=== PATIENT | male | born 1970 | race Caucasian/White ===

== ENCOUNTER 2018-11-06 17:53 | Emergency (ER) | payer OTHER ==
[~2018-11-06] VITALS: Ht 175.3 cm; Wt 72.6 kg
[2018-11-06 18:07] VITALS: BP 135/79
--- NOTE | 2018-11-06 18:13 | PHYS DOC ---
Adult General Chief Complaint Chief Complaint: [facility] HPI Patient is a 48 year old male who presents with right rotator cuff surgery on Thursday by . 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 Patient states today he began having muscle cramps that goes from his right neck going down his right arm. Patient rates pain a 10 out of 10. Patient is in a shoulder immobilizer. Review of Systems Review of Systems Constitutional: Denies fever or chills [] Eyes: Denies change in visual acuity, redness, or eye pain [] HENT: Denies nasal congestion or sore throat [] Respiratory: Denies cough or shortness of breath [] Cardiovascular: No additional information not addressed in HPI [] GI: Denies abdominal pain, nausea, vomiting, bloody stools or diarrhea [] : Denies dysuria or hematuria [] Musculoskeletal: Right shoulder and arm cramping. Denies back pain or joint pain [] Integument: Denies rash or skin lesions [] Neurologic: Denies headache, focal weakness or sensory changes [] Endocrine: Denies polyuria or polydipsia [] All other systems were reviewed and found to be within normal limits, except as documented in this note. Current Medications Current Medications Current Medications Medications (Trade) Dose Ordered Sig/Melinda Start Time Stop Time Status Last Admin Dose Admin Ketorolac Tromethamine (Toradol Im) 60 mg 1X ONCE 11/06/18 18:15 11/06/18 18:16 DC 11/06/18 18:17 60 MG Orphenadrine Citrate (Norflex) 60 mg 1X ONCE 11/06/18 18:15 11/06/18 18:16 DC 11/06/18 18:16 60 MG Allergies Allergies Allergies Coded Allergies Type Severity Reaction Last Updated Verified No Known Drug Allergies 11/06/18 No Physical Exam Physical Exam Constitutional: Well developed, well nourished, no acute distress, non-toxic appearance. [] HENT: Normocephalic, atraumatic, bilateral external ears normal, oropharynx moist, no oral exudates, nose normal. [] Eyes: PERRLA, EOMI, conjunctiva normal, no discharge. [] Neck: Normal range of motion, no tenderness, supple, no stridor. [] Cardiovascular:Heart rate regular rhythm, no murmur [] Lungs & Thorax: Bilateral breath sounds clear to auscultation [] Abdomen: Bowel sounds normal, soft, no tenderness, no masses, no pulsatile masses. [] Skin: Warm, dry, no erythema, no rash. [] Back: No tenderness, no CVA tenderness. [] Extremities: Right shoulder and arm cramping. No tenderness, no cyanosis, no clubbing, ROM intact, no edema. [] Neurologic: Alert and oriented X 3, normal motor function, normal sensory function, no focal deficits noted. [] Psychologic: Affect normal, judgement normal, mood normal. [] Current Patient Data Vital Signs Vital Signs Date Time Temp Pulse Resp B/P (MAP) Pulse Ox O2 Delivery O2 Flow Rate FiO2 11/06/18 18:07 99.0 86 16 135/79 (97) 97 Room Air 99.0 EKG EKG [] Radiology/Procedures Radiology/Procedures [] Course & Med Decision Making Course & Med Decision Making Patient is a 48 year old male who presents with right rotator cuff surgery on Thursday by . 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 Patient states today he began having muscle cramps that goes from his right neck going down his right arm. Patient rates pain a 10 out of 10. Patient is in a shoulder immobilizer. I ordered IM Norflex and Toradol for the patient. He states he took OxyContin and Tylenol at 1730. Alert and oriented. Skin pink warm and dry. Patient denies chest pain, soa, nausea, vomiting. Right Radial pulse is present. No edema to hand. Cap refill < 3 seconds. Patient discharged home and told to take his medications as prescribed. Patients should call the doctor in the morning. Dragon Disclaimer Dragon Disclaimer This electronic medical record was generated, in whole or in part, using a voice recognition dictation system. Departure Departure Impression: Primary Impression: Muscle cramp Disposition: HOME, SELF-CARE Condition: STABLE Patient Instructions: Muscle Cramps Additional Instructions: Take medications as prescribed. Call your doctor for further care. CARRI WESTFALL APRN Nov 06, 2018 18:13
[2018-11-06] MEDS ORDERED: KETOROLAC 60 MG/2 ML VIAL. IM ONE (18:15)
[2018-11-06] MEDS ORDERED: ORPHENADRINE CITRATE 60 MG/2 ML VIAL. IM ONE (18:15)
== END 2018-11-06 19:10 | disposition home or self-care (01) ==
LOC: ER 17:53
DX: R25.2 Cramp and spasm (principal)
CPT/HCPCS: 96372; 99283; J1885; J2360